=== PATIENT | female | born 1955 | race Caucasian/White ===

== ENCOUNTER 2017-04-05 01:01 | Inpatient (IN) | payer OTHER, MEDICARE ==
[~2017-04-05] VITALS: Ht 177.8 cm; Wt 76.1 kg
[2017-04-05 03:02] LABS: CONDITION Y; Hematocrit 38.4 % (36.0-46.0); Hemoglobin 12.9 g/dL (12.2-16.2); Mean Corpuscular Hemoglobin 29.3 pg (28.0-32.0); Mean Corpuscular Hgb Conc. 33.7 g/dL (32.0-36.0); Mean Corpuscular Volume 86.9 fL (80.0-100.0); Mean Platelet Volume 9.1 fL (7.4-10.4); Platelet Count (auto) 88 10^3/uL (140-450); Red Cell Distribution Width 17.5 % (11.6-16.0); SUSPECT SEE PRINTOUT; White Blood Cell 15.2 10^3/uL (4.4-10.8)
[2017-04-05 03:15] LABS: Albumin 2.6 g/dL (3.4-5.0); BUN/Creatinine Ratio 10.8; Calcium 7.5 mg/dL (8.5-10.1); Potassium 3.1 mmol/L (3.5-5.1)
[2017-04-05 03:18] LABS: INR 1.47 (0.9-1.15); Partial Thromboplastin Time 35.2 sec (22.64-33.71)
[2017-04-05 03:20] LABS: Bilirubin, Total 1.3 mg/dL (0.2-1.0); Total Protein 7.3 g/dL (6.4-8.2)
[2017-04-05 03:40] LABS: Prothrombin Time 16.1 sec (9.37-12.3)
[2017-04-05 03:47] LABS: Myelocytes % 0; Promyelocytes % 0; Reactive Lymphocytes 0
[2017-04-05] MEDS ORDERED: TEMAZEPAM 15 MG CAP PO ONE (04:00)
[2017-04-05 04:50] LABS: Metamyelocytes % 1; Platelet Estimate Decreased
[2017-04-05 04:51] LABS: RBC Morphology Normal
[2017-04-05] MEDS ORDERED: NITROGLYCERIN 0.4 MG SL TAB SL PRN (06:30)
[2017-04-05] MEDS ORDERED: ACETAMINOPHEN 325 MG TAB PO PRN (06:30)
[2017-04-05] MEDS ORDERED: cloNIDine HCL 0.1 MG TAB PO PRN (06:30)
[2017-04-05] MEDS ORDERED: SODIUM CHLORIDE 0.9% 1,000 ML IV ONE (06:30)
[2017-04-05] MEDS ORDERED: METOPROLOL TARTRATE 1MG/1ML-5ML VIAL IV ONE (06:30)
[2017-04-05] MEDS ORDERED: TEMAZEPAM 15 MG CAP PO PRN (06:30)
[2017-04-05] MEDS ORDERED: MORPHINE SULF INJ 2 MG/ML SYRINGE 1ML IV PRN (06:30)
[2017-04-05] MEDS: LEVOFLOXACIN 750MG 150 ML IV SCH (07:22)
[2017-04-05] MEDS: ONDANSETRON HCL 4 MG/2 ML VIAL IV PRN ×2 (07:59→18:43)
[2017-04-05] MEDS: MORPHINE SULF INJ 2 MG/ML SYRINGE 1ML IV PRN ×2 (07:59→12:27)
[2017-04-05] MEDS: SODIUM CHLORIDE 0.9% 1,000 ML IV SCH ×2 (08:03→20:13)
[2017-04-05 08:15] LABS: Lactic Acid w/Reflex 4.4 mmol/L (0.4-2.0)
[2017-04-05 08:31] LABS: REFLEX LACTIC ACID YES OR NO YES
[2017-04-05 08:56] VITALS: BP 136/77
[2017-04-05 09:13] VITALS: BP 136/77
[2017-04-05] MEDS ORDERED: LEVO25TA6 PO (09:29)
[2017-04-05] MEDS ORDERED: OXYC30TA77 PO (09:29)
[2017-04-05] MEDS ORDERED: ALPR1TAB2 PO (09:29)
[2017-04-05] MEDS ORDERED: ONDA8TAB6 PO (09:29)
[2017-04-05] MEDS ORDERED: PRO10T PO (09:29)
[2017-04-05] MEDS ORDERED: OXYC-650 PO (09:29)
[2017-04-05] MEDS ORDERED: CARI-277 PO (09:29)
[2017-04-05] MEDS ORDERED: [UNRECOGNIZED DRUG - CODE] EX (09:29)
[2017-04-05] MEDS ORDERED: VENL150C PO (09:29)
[2017-04-05] MEDS ORDERED: METO25TA5 PO (09:29)
[2017-04-05] MEDS: ENOXAPARIN SOD 40 MG/0.4 ML SYRINGE SC SCH (10:33)
[2017-04-05] MEDS: DILTIAZEM HCL 180MG ER CAP PO SCH (10:33)
[2017-04-05] MEDS: PANTOPRAZOLE SODIUM 40 MG/10 ML VIAL IV SCH (10:33)
[2017-04-05] MEDS: HYDROcodone-ACET 5/325MG TAB PO PRN (10:34)
[2017-04-05] MEDS: LORazepam 0.5 MG TAB PO PRN (13:24)
[2017-04-05] MEDS: oxyCODONE ER 10 MG TAB PO PRN (18:43)
[2017-04-05 20:00] VITALS: BP 112/65
[2017-04-05 21:30] VITALS: BP 112/65
[2017-04-05] MEDS ORDERED: DILT180C68 PO (23:39)
[2017-04-05] MEDS ORDERED: LETR2.5T PO (23:39)
[2017-04-05] MEDS ORDERED: PERCOT PO (23:39)
[2017-04-06] MEDS: LORazepam 0.5 MG TAB PO PRN ×4 (00:22→23:24)
[2017-04-06 05:00] VITALS: BP 114/63
[2017-04-06] MEDS: LEVOFLOXACIN 750MG 150 ML IV SCH (06:09)
[2017-04-06 06:32] LABS: Basophils # (auto) 0 uL; CONDITION Y; Eosinophils # (auto) 0 uL; Hematocrit 33.6 % (36.0-46.0); Hemoglobin 11.3 g/dL (12.2-16.2); Lymphocytes % (auto) 12.9 % (10.0-50.0); Mean Corpuscular Hemoglobin 29.3 pg (28.0-32.0); Mean Corpuscular Hgb Conc. 33.5 g/dL (32.0-36.0); Mean Corpuscular Volume 87.3 fL (80.0-100.0); Mean Platelet Volume 8.9 fL (7.4-10.4); Monocytes # (auto) 0.5 uL; Monocytes % (auto) 7.1 % (0.0-12.0); Neutrophils # (auto) 6.2 uL; Platelet Count (auto) 111 10^3/uL (140-450); Red Cell Distribution Width 17.3 % (11.6-16.0); White Blood Cell 7.7 10^3/uL (4.4-10.8)
[2017-04-06 07:01] LABS: Albumin 2.2 g/dL (3.4-5.0); BUN/Creatinine Ratio 18.8; Calcium 7.8 mg/dL (8.5-10.1)
[2017-04-06 07:03] LABS: Bilirubin, Total 0.8 mg/dL (0.2-1.0); Total Protein 6.5 g/dL (6.4-8.2)
[2017-04-06 09:00] VITALS: BP 131/69
[2017-04-06] MEDS: SODIUM CHLORIDE 0.9% 1,000 ML IV SCH ×2 (09:23→22:30)
[2017-04-06] MEDS: PANTOPRAZOLE SODIUM 40 MG/10 ML VIAL IV SCH (09:32)
[2017-04-06] MEDS: ENOXAPARIN SOD 40 MG/0.4 ML SYRINGE SC SCH (09:34)
[2017-04-06] MEDS: DILTIAZEM HCL 180MG ER CAP PO SCH (09:34)
[2017-04-06] MEDS: oxyCODONE ER 10 MG TAB PO PRN (12:02)
[2017-04-06 13:00] VITALS: BP 134/71
[2017-04-06 17:00] VITALS: BP 121/67
[2017-04-06 17:45] LABS: Body Fluid Polymorphonuclear 70 %
[2017-04-06 21:44] VITALS: BP 127/57
[2017-04-07] MEDS: HYDROcodone-ACET 5/325MG TAB PO PRN (02:53)
[2017-04-07 05:11] VITALS: BP 122/68
[2017-04-07] MEDS: LEVOFLOXACIN 750MG 150 ML IV SCH (06:13)
[2017-04-07] MEDS: SODIUM CHLORIDE 0.9% 1,000 ML IV SCH (06:24)
[2017-04-07] MEDS: LORazepam 0.5 MG TAB PO PRN (06:34)
[2017-04-07 06:52] LABS: Basophils # (auto) 0 uL; Basophils % (auto) 0.4 % (0.0-2.0); CONDITION Y; Eosinophils # (auto) 0 uL; Hematocrit 35.3 % (36.0-46.0); Hemoglobin 11.9 g/dL (12.2-16.2); Lymphocytes # (auto) 0.8 uL; Lymphocytes % (auto) 15.5 % (10.0-50.0); Mean Corpuscular Hemoglobin 29.3 pg (28.0-32.0); Mean Corpuscular Hgb Conc. 33.6 g/dL (32.0-36.0); Mean Corpuscular Volume 87.1 fL (80.0-100.0); Mean Platelet Volume 9.1 fL (7.4-10.4); Monocytes # (auto) 0.4 uL; Monocytes % (auto) 8.5 % (0.0-12.0); Neutrophils % (auto) 75.6 % (37.0-80.0); Platelet Count (auto) 117 10^3/uL (140-450); Red Cell Distribution Width 17.5 % (11.6-16.0); White Blood Cell 5.3 10^3/uL (4.4-10.8)
[2017-04-07 07:08] LABS: INR 1.4 (0.9-1.15)
[2017-04-07 07:13] LABS: Albumin 2.2 g/dL (3.4-5.0); BUN/Creatinine Ratio 10.8; Calcium 7.5 mg/dL (8.5-10.1); Potassium 3.2 mmol/L (3.5-5.1)
[2017-04-07 07:16] LABS: Bilirubin, Total 1.1 mg/dL (0.2-1.0); Total Protein 6.6 g/dL (6.4-8.2)
[2017-04-07 07:22] LABS: Prothrombin Time 15.3 sec (9.37-12.3)
[2017-04-07] MEDS: oxyCODONE ER 10 MG TAB PO PRN (09:03)
[2017-04-07 09:24] VITALS: BP 140/57
[2017-04-07 09:59] VITALS: BP 114/63
[2017-04-07 22:09] LABS: Albumin, Body Fluid 0.6 g/dL (.); Albumin, Body Fluid 1.1 g/dL (.)
[2017-04-09 15:08] LABS: Ceruloplasmin 20.6 mg/dL (19.0-39.0)
== END 2017-04-07 10:30 | disposition home or self-care (01) | DRG 193 ==
LOC: ER 01:01 → TELE 01:02 → TELE-E-ADS 08:09 → TELE-WESTW 13:00
PROVIDERS: ADMIT Nurse Practitioner; ATTEND Internal Medicine
PROC: 0W9G3ZZ Drainage of Peritoneal Cavity, Percutaneous Approach (ICD-10-PCS; principal; 2017-04-06)
PROC: 0W993ZZ Drainage of Right Pleural Cavity, Percutaneous Approach (ICD-10-PCS; 2017-04-06)
DX: J18.1 Lobar pneumonia, unspecified organism (principal); E43 Unspecified severe protein-calorie malnutrition; J90 Pleural effusion, not elsewhere classified; G89.4 Chronic pain syndrome; E87.6 Hypokalemia; I10 Essential (primary) hypertension; K52.9 Noninfective gastroenteritis and colitis, unspecified; K74.60 Unspecified cirrhosis of liver; G89.29 Other chronic pain; K52.3 Indeterminate colitis; Z85.3 Personal history of malignant neoplasm of breast; Z90.49 Acquired absence of other specified parts of digestive tract; Z68.24 Body mass index [BMI] 24.0-24.9, adult
CPT/HCPCS: 36415; 71010; 71250; 74176; 76604; 76700; 76942; 80053; 80074; 82140; 82390; 83540; 83550; 83605; 83880; 84484; 85007; 85025; 85027; 85610; 85730; 86038; 87040; 87045; 87205; 87493; 87899; 89051; 93005; 96361; 96374; 96375; C9113; J1956; J2405

== ENCOUNTER 2020-03-20 21:13 | Inpatient (IN) | payer OTHER, MEDICARE ==
[~2020-03-20] VITALS: Ht 165.1 cm; Wt 95.6 kg
[~2020-03-20 21:13] MED LIST: ALPR1TAB2 PO; CARI-277 PO; DILT180C68 PO; LETR2.5T PO; LEVO25TA6 PO; METO25TA5 PO; ONDA-143 PO; OXYC-650 PO; PERCOT PO; PROC10TA2 PO; VENL150C2 PO; [UNRECOGNIZED DRUG - CODE] EX
[2020-03-20 23:00] LABS: Basophils # (auto) 0 10 ^3/uL (0-0.2); Eosinophils # (auto) 0.1 10 ^3/uL (0-0.8); Neutrophils % (auto) 65.8 % (37.0-80.0)
[2020-03-20 23:09] LABS: INR 1.23 (0.9-1.15); Partial Thromboplastin Time 31.9 sec (23.64-32.05)
[2020-03-20 23:46] LABS: Basophils % (auto) 0.6 % (0.0-2.0); Hematocrit 40.4 % (36.0-46.0); Hemoglobin 13.7 g/dL (12.2-16.2); Lymphocytes # (auto) 0.7 10 ^3/uL (0.4-5.4); Lymphocytes % (auto) 21.4 % (10.0-50.0); Mean Corpuscular Hemoglobin 30.7 pg (28.0-32.0); Mean Corpuscular Hgb Conc. 33.9 g/dL (32.0-36.0); Mean Corpuscular Volume 90.6 fL (80.0-100.0); Monocytes # (auto) 0.3 10 ^3/uL (0-1.3); Monocytes % (auto) 10.2 % (0.0-12.0); Neutrophils # (auto) 2.3 10 ^3/uL (1.6-8.6); Nucleated Red Blood Cells % 0.2 %; Platelet Count (auto) 81 10^3/uL (140-450); Red Blood Cells 4.45 10^6/uL (4.0-5.20); Red Cell Distribution Width 15.3 % (11.8-14.3); White Blood Cell 3.4 10^3/uL (4.4-10.8)
[2020-03-21 00:46] LABS: Anion Gap 4 (5-15); Carbon Dioxide 28 mmol/L (21-32); Chloride 109 mmol/L (98-107); Glucose 80 mg/dL (74-106); Potassium 3.9 mmol/L (3.5-5.1); Sodium 141 mmol/L (136-145)
[2020-03-21 00:47] LABS: Alanine Aminotransferase 34 U/L (13-56); Albumin 3.1 g/dL (3.4-5.0); Alkaline Phosphatase 104 U/L (45-117); Aspartate Aminotransferase 39 U/L (15-37); Bilirubin, Total 1.8 mg/dL (0.2-1.0); Blood Urea Nitrogen 7 mg/dL (7-18); Calcium 8.1 mg/dL (8.5-10.1); GFR African American 96 mL/min; GFR Non-African American 79 mL/min; Magnesium 2.5 mg/dL (1.6-2.6); Total Protein 7.8 g/dL (6.4-8.2)
[2020-03-21 00:48] LABS: Amylase 74 U/L (25-115); Lipase 197 U/L (73-393)
[2020-03-21] MEDS ORDERED: MORPHINE SULF INJ 2 MG/ML SYRINGE 1ML IV ONE (04:00)
[2020-03-21] MEDS ORDERED: ONDANSETRON HCL 4 MG/2 ML VIAL IV ONE (04:00)
[2020-03-21] MEDS ORDERED: IOHEXOL 350 MG/ML 100ML IJ ONE (06:06)
[2020-03-21] MEDS ORDERED: MORPHINE SULF INJ 2 MG/ML SYRINGE 1ML IV PRN ×2 (10:15→10:30)
[2020-03-21] MEDS ORDERED: NITROGLYCERIN 0.4 MG SL TAB SL PRN ×2 (10:15→10:30)
[2020-03-21] MEDS ORDERED: ONDANSETRON HCL 4 MG/2 ML VIAL IV PRN (10:30)
[2020-03-21] MEDS ORDERED: VANCOMYCIN PER PHARMACY 0 MG IV SCH (10:30)
[2020-03-21] MEDS ORDERED: HYDROcodone-ACET 5/325MG TAB PO PRN (10:30)
[2020-03-21] MEDS ORDERED: ALUM & MAG HYDROX-SIMETH LIQ(MAALOX) 30 ML PO PRN (10:30)
[2020-03-21] MEDS ORDERED: IPRATROPIUM BROM 0.5 MG/2.5ML INH SOL NEB PRN (10:30)
[2020-03-21] MEDS ORDERED: DOCUSATE SOD 100 MG CAP PO PRN (10:30)
[2020-03-21] MEDS: MORPHINE SULF INJ 2 MG/ML SYRINGE 1ML IV PRN ×2 (11:00→22:28)
[2020-03-21 11:08] VITALS: BP 141/81
[2020-03-21] MEDS: VANCOMYCIN 1GM/250ML 250 ML IV SCH ×2 (11:35→22:10)
[2020-03-21 12:00] LABS: Cholesterol 134 mg/dL (< 200); HDL Cholesterol 49 mg/dL (40-59); LDL Cholesterol 85 mg/dL (< 100); Triglycerides 50 mg/dL (< 150)
[2020-03-21] MEDS: PIPERACILLIN-TAZOB 3.375GM 100 ML IV SCH ×2 (14:22→18:13)
[2020-03-21] MEDS: FUROSEMIDE 20 MG/2 ML VIAL IV SCH (18:00)
[2020-03-21] MEDS ORDERED: PROCHLORPERAZINE MALEATE 10 MG TAB PO PRN (18:00)
--- NOTE | 2020-03-21 18:00 | NUR ---
Telemetry admit from ER BARRY MEJIA admitted to Telemetry unit after SBAR received. Patient oriented to RERE HERNÁNDEZ,RN primary RN, unit, room, bed, and unit policies regarding patient care and visiting hours. Patient now on continuous telemetry monitoring, tele box # 42 and telemetry reading on arrival to unit is NSR @ 88BPM. Patient placed on bedside oxygen @ 3L N/C, weighed by bedscale and encouraged to call if they need something. Bed in lowest/locked position, bed rails up x2, call light within reach. All questions and concerns addressed, patient verbalized understanding.
[2020-03-21] MEDS ORDERED: GABA-339 PO (18:34)
[2020-03-21] MEDS ORDERED: ALBUAER3 IN (18:34)
[2020-03-21] MEDS ORDERED: ARIP2TAB PO (18:34)
[2020-03-21] MEDS ORDERED: MELA3TAB27 PO (18:36)
[2020-03-21] MEDS ORDERED: TRAZ100T3 PO (18:36)
[2020-03-21 18:50] VITALS: BP 147/64
--- NOTE | 2020-03-21 18:55 | NUR ---
TRAVEL ASSESSMENT ON ADMIT PRIMARY TIFFANY JERNIGAN AWARE OF PATIENTS SYMPTOMS. Addendum: 03/21/20 at 1857 by Christi Estrella RN Amended: Links added.
--- NOTE | 2020-03-21 18:57 | NUR ---
TEMP TEMP 100.4. COOLING MEASURES PLACED. NO MEDICATION IN EMAR FOR TEMP. WILL NOTIFY HOSPITALIST. AWAITING RETURN CALL
--- NOTE | 2020-03-21 19:04 | NUR ---
ASSESSED PT @ THIS TIME FOR PRN MED NEB TX. PT STATES HER BREATHING IS DOING FINE. NO DISTRESS NOTED. FOUND HER ON R/A W/ SPO2 OF 88%. I PLACED ON HER ON A NC @ 2L, SPO2 NOW 93%, HR 77 AND RR 16. BS ARE DIMINISHED T/O. PT IS AWARE TO CALL IF SHE FEELS SOB.
--- NOTE | 2020-03-21 19:13 | NUR ---
RETURN CALL DR MARC RETURNED CALL RE: PATIENT TEMP 100.4 AND 2 SYMPT[address] OF COVID[address] MARC; PATIENT WAS RECENTLY SWABBED 2X FOR COVID WITH NEGATIVE RESULTS BUT IF NEEDED PUT PATIENT ON ISO AND SWAB FOR COVID. NEW ORDERS RECEIVED/WILL CARRY OUT. ENDORSED CARE TO REESE DU
[2020-03-21] MEDS ORDERED: ACETAMINOPHEN 325 MG TAB PO PRN ×2 (19:30)
--- NOTE | 2020-03-21 19:45 | NUR ---
Opening Shift Note Assumed patient care from day shift RN. Patient sitting in bed, AOx4, with no s/s of SOB or distress. Patient bed locked in lowest position, call light within reach and HOB at 30 degrees. Will continue to monitor.
[2020-03-21 22:00] VITALS: BP 147/94
[2020-03-21] MEDS: VENLAFAXINE HCL 37.5MG TABLET PO SCH (22:09)
[2020-03-21] MEDS: CARISOPRODOL 350 MG TAB PO SCH (22:10)
[2020-03-21] MEDS: METOPROLOL TARTRATE 25 MG TAB PO SCH (22:10)
--- NOTE | 2020-03-21 22:28 | NUR ---
Complaints of Pain Patient complains of left lip and leg pain. Pain assessed and given medication for pain as prescribed. Will continue to monitor.
[2020-03-22] MEDS: PIPERACILLIN-TAZOB 3.375GM 100 ML IV SCH ×4 (01:45→23:33)
[2020-03-22 05:00] VITALS: BP 125/66
[2020-03-22] MEDS: FUROSEMIDE 20 MG/2 ML VIAL IV SCH ×2 (06:00→18:13)
[2020-03-22] MEDS: LEVOTHYROXINE SODIUM 25 MCG TAB PO SCH (06:01)
[2020-03-22] MEDS: CARISOPRODOL 350 MG TAB PO SCH ×3 (06:01→23:24)
[2020-03-22 06:54] LABS: Basophils # (auto) 0 10 ^3/uL (0-0.2); Basophils % (auto) 0.9 % (0.0-2.0); Eosinophils # (auto) 0.1 10 ^3/uL (0-0.8); Eosinophils % (auto) 2.3 % (0.0-7.0); Hematocrit 36.2 % (36.0-46.0); Hemoglobin 12.4 g/dL (12.2-16.2); Lymphocytes # (auto) 0.7 10 ^3/uL (0.4-5.4); Mean Corpuscular Hemoglobin 30.6 pg (28.0-32.0); Mean Corpuscular Hgb Conc. 34.2 g/dL (32.0-36.0); Mean Corpuscular Volume 89.6 fL (80.0-100.0); Monocytes # (auto) 0.5 10 ^3/uL (0-1.3); Monocytes % (auto) 10.2 % (0.0-12.0); Neutrophils # (auto) 3.5 10 ^3/uL (1.6-8.6); Neutrophils % (auto) 71.6 % (37.0-80.0); Nucleated Red Blood Cells % 0.3 %; Platelet Count (auto) 88 10^3/uL (140-450); Red Blood Cells 4.04 10^6/uL (4.0-5.20); Red Cell Distribution Width 14.8 % (11.8-14.3); White Blood Cell 4.9 10^3/uL (4.4-10.8)
[2020-03-22 07:11] LABS: Magnesium 2.3 mg/dL (1.6-2.6)
[2020-03-22 07:18] LABS: INR 1.33 (0.9-1.15); Partial Thromboplastin Time 39.3 sec (23.64-32.05)
[2020-03-22 07:27] LABS: Albumin 2.8 g/dL (3.4-5.0); BUN/Creatinine Ratio 11.2; Bilirubin, Total 2.7 mg/dL (0.2-1.0); Calcium 7.9 mg/dL (8.5-10.1); Phosphorus 3.8 mg/dL (2.5-4.90); Total Protein 6.8 g/dL (6.4-8.2)
--- NOTE | 2020-03-22 07:30 | NUR ---
Opening Shift Note Assumed care of patient, awake and alert. No S/S of distress/SOB or pain. Updated on POC and instructed to call for assistance PRN. Bed locked in lowest position, side rails up x2, call light within reach. Safety precautions in place. will continue to monitor for changes Q1hr and PRN.
[2020-03-22] MEDS: MORPHINE SULF INJ 2 MG/ML SYRINGE 1ML IV PRN ×3 (08:35→21:50)
--- NOTE | 2020-03-22 08:59 | NUR ---
COVID SWAB SENT TO LAB
[2020-03-22 09:00] VITALS: BP 93/55
[2020-03-22] MEDS: SPIRONOLACTONE 25 MG TAB PO SCH (09:26)
[2020-03-22] MEDS: METOPROLOL TARTRATE 25 MG TAB PO SCH ×2 (09:26→23:27)
[2020-03-22] MEDS: VENLAFAXINE HCL 37.5MG TABLET PO SCH ×2 (09:26→23:25)
[2020-03-22] MEDS: dilTIAZem 120MG ER CAP PO SCH (09:26)
[2020-03-22] MEDS: VANCOMYCIN 1GM/250ML 250 ML IV SCH (10:38)
[2020-03-22] MEDS ORDERED: ALBUMIN 25% 50 ML IV ONE (11:15)
[2020-03-22] MEDS ORDERED: SODIUM CHLORIDE 0.9% 1,000 ML IV ONE (11:15)
[2020-03-22 13:00] VITALS: BP 107/51
[2020-03-22] MEDS: ALBUMIN 25% 100 ML IV SCH ×2 (13:30→23:21)
[2020-03-22 17:00] VITALS: BP 109/55
--- NOTE | 2020-03-22 18:50 | NUR ---
PATIENT ROUNDS PATIENT SITTING UP EATING DINNER, NO S/S OF DISTRESS. WILL ENDORSE CARE TO METAL BONDING HELPER RN.
--- NOTE | 2020-03-22 19:18 | NUR ---
PT ASSESSED FOR PRN MED NEB TX. SPO2 80% ON RA. PT PLACED ON 2L NC WITH SPO2 AT 91%, HR 69. PT DENIES ANY RESPIRATORY DISTRESS. NO TX INDICATED. WILL CONTINUE TO MONITOR.
--- NOTE | 2020-03-22 19:20 | NUR ---
Opening Shift Note Assumed patient care from day shift RN. Patient sitting in bed, AOx4, with no s/s of SOB or distress at this time. Patient bed locked in lowest position, call light within reach and HOB at 30 degrees. Will continue to monitor.
--- NOTE | 2020-03-22 21:50 | NUR ---
Complains of generalized pain Medication for pain given as prescribed Will continue to monitor.
--- NOTE | 2020-03-23 01:00 | NUR ---
Patient very agitated Patient was screaming and standing by commode saying that she wanted to go home. Patient also said shes in a lot of generalized pain. Hospitalist was paged. Still waiting for a call. TRANSITION TEACHER at bedside until patient stays safely in bed. Will continue to frequently monitor.
[2020-03-23] MEDS: MORPHINE SULF INJ 2 MG/ML SYRINGE 1ML IV PRN ×4 (01:49→23:12)
--- NOTE | 2020-03-23 01:50 | NUR ---
Pain medication given for generalized pain Patient given medication as prescribed. Patient now resting more calmly in bed.
[2020-03-23 02:16] VITALS: BP 120/61
--- NOTE | 2020-03-23 03:00 | NUR ---
Patient Right wrist IV D/C due to infiltration. patient IV cath intact and patient tolerated well.
--- NOTE | 2020-03-23 03:54 | NUR ---
New IV Cath placed New IV cath placed on left hand 22 g . patient tolerated well.
[2020-03-23] MEDS: VANCOMYCIN 1GM/250ML 250 ML IV SCH ×3 (04:15→22:59)
[2020-03-23] MEDS: ALBUMIN 25% 100 ML IV SCH (04:18)
[2020-03-23] MEDS: PIPERACILLIN-TAZOB 3.375GM 100 ML IV SCH ×3 (04:55→15:23)
[2020-03-23] MEDS: FUROSEMIDE 20 MG/2 ML VIAL IV SCH ×2 (05:30→17:43)
[2020-03-23] MEDS: CARISOPRODOL 350 MG TAB PO SCH ×3 (05:30→22:58)
[2020-03-23 06:03] VITALS: BP 124/60
--- NOTE | 2020-03-23 06:55 | NUR ---
PRN MN TX NOT INDICATED AT THIS TIME. PT IN NO RESPIRATORY DISTRESS. PT ON RA. 95% O2 SATS.
[2020-03-23] MEDS: LEVOTHYROXINE SODIUM 25 MCG TAB PO SCH (07:10)
--- NOTE | 2020-03-23 07:38 | NUR ---
Opening Shift Note Assumed care of patient, awake and alert. No S/S of distress/SOB, patient reports lower back pain of 10/10 will medicate per MD orders. Updated on POC and instructed to call for assistance PRN. Bed locked in lowest position, side rails up x2, call light within reach. Safety precautions in place. will continue to monitor for changes Q1hr and PRN.
[2020-03-23 08:35] LABS: Basophils # (auto) 0 10 ^3/uL (0-0.2); Eosinophils # (auto) 0.1 10 ^3/uL (0-0.8); Lymphocytes # (auto) 0.6 10 ^3/uL (0.4-5.4); Monocytes # (auto) 0.4 10 ^3/uL (0-1.3); White Blood Cell 3.1 10^3/uL (4.4-10.8)
[2020-03-23 08:38] LABS: Basophils % (auto) 0.8 % (0.0-2.0); Eosinophils % (auto) 2.2 % (0.0-7.0); Hematocrit 33.1 % (36.0-46.0); Hemoglobin 11.4 g/dL (12.2-16.2); Lymphocytes % (auto) 19.1 % (10.0-50.0); Mean Corpuscular Hemoglobin 30.8 pg (28.0-32.0); Mean Corpuscular Hgb Conc. 34.5 g/dL (32.0-36.0); Mean Corpuscular Volume 89.2 fL (80.0-100.0); Monocytes % (auto) 12.7 % (0.0-12.0); Neutrophils % (auto) 65.2 % (37.0-80.0); Nucleated Red Blood Cells % 0.2 %; Platelet Count (auto) 62 10^3/uL (140-450); Red Cell Distribution Width 14.7 % (11.8-14.3)
[2020-03-23 08:58] LABS: Potassium 3.4 mmol/L (3.5-5.1)
[2020-03-23 09:00] VITALS: BP 100/56
[2020-03-23 09:04] LABS: INR 1.38 (0.9-1.15); Partial Thromboplastin Time 39.8 sec (23.64-32.05)
[2020-03-23 09:08] LABS: Calcium 8.3 mg/dL (8.5-10.1); Magnesium 2.3 mg/dL (1.6-2.6); Phosphorus 3.2 mg/dL (2.5-4.90); Total Protein 7.3 g/dL (6.4-8.2)
[2020-03-23] MEDS: dilTIAZem 120MG ER CAP PO SCH (10:00)
[2020-03-23] MEDS: METOPROLOL TARTRATE 25 MG TAB PO SCH ×2 (10:00→23:13)
[2020-03-23] MEDS: SPIRONOLACTONE 25 MG TAB PO SCH (10:41)
[2020-03-23] MEDS: VENLAFAXINE HCL 37.5MG TABLET PO SCH ×2 (10:41→22:58)
[2020-03-23 13:00] VITALS: BP 133/61
--- NOTE | 2020-03-23 13:11 | NUR ---
PATIENT ARRIVED IN [place]. PER BED FOR THORACENTESIS BASELINE VS HR 76, RR 15, SAO2 91%, SP 104/59 1316 O2 APPLIED @ 2L PER NC - SAO2 96% 1325 HR 70, RR 13, SDD699%, BP 101/53 1330 HR 68, RR 14, SAO2 96%, BP 98/52 1334 HR 74, RR 23, SAO2 95% BP 108/62 1441 PATIENT TOLERATED PROCEDURE WELL. 950ML SARA LIQ OBTAINED - TAKEN TO LAB FOR PATHOLOGY PER ORDERS. PATIENT RETURNED TO ROOM PER BED ON 2L O2 PER NC. REPORT CALLED TO TIFFANY.
[2020-03-23 17:00] VITALS: BP 90/41
--- NOTE | 2020-03-23 18:53 | NUR ---
PATIENT ROUNDS PATIENT SITTING UP EATING DINNER, NO S/S OF DISTRESS. WILL ENDORSE CARE TO PROJECT CONSTRUCTION ASSISTANT MANAGER RN.
[2020-03-23 22:00] VITALS: BP 118/60
--- NOTE | 2020-03-23 22:00 | NUR ---
Respiratory note: PT ASSESSED FOR PRN MED NEB TX. HR 82, RR 18, SPO2 95% RA. NO S/S OF ANY RESPIRATORY DISTRESS NOTED. ADVISED PT TO CALL IF TX IS NEEDED.
[2020-03-23] MEDS: rifAXIMin 550 MG TAB PO SCH (22:58)
[2020-03-23] MEDS: LACTULOSE 20Gm/30ML SOLN PO SCH (22:59)
[2020-03-24] MEDS: PIPERACILLIN-TAZOB 3.375GM 100 ML IV SCH ×4 (00:32→16:00)
[2020-03-24 05:00] VITALS: BP 127/78
[2020-03-24] MEDS: MORPHINE SULF INJ 2 MG/ML SYRINGE 1ML IV PRN ×2 (05:15→10:06)
--- NOTE | 2020-03-24 05:45 | NUR ---
Respiratory note: PT ASSESSED FOR PRN TX. HR 106, 18, POX 94% ON RA , BS ARE CLEAR. NO SOB OR DISTRESS NOTED.
[2020-03-24] MEDS: LACTULOSE 20Gm/30ML SOLN PO SCH ×2 (05:46→14:00)
[2020-03-24] MEDS: FUROSEMIDE 20 MG/2 ML VIAL IV SCH ×2 (05:46→18:00)
[2020-03-24] MEDS: CARISOPRODOL 350 MG TAB PO SCH ×2 (05:47→14:00)
[2020-03-24] MEDS ORDERED: LEVOTHYROXINE SODIUM 25 MCG TAB PO SCH (07:00)
[2020-03-24 07:17] LABS: Basophils # (auto) 0.1 10 ^3/uL (0-0.2); Basophils % (auto) 1.2 % (0.0-2.0); Eosinophils # (auto) 0.1 10 ^3/uL (0-0.8); Eosinophils % (auto) 2.6 % (0.0-7.0); Hematocrit 34.3 % (36.0-46.0); Hemoglobin 11.9 g/dL (12.2-16.2); Lymphocytes # (auto) 0.6 10 ^3/uL (0.4-5.4); Lymphocytes % (auto) 15.7 % (10.0-50.0); Mean Corpuscular Hemoglobin 30.8 pg (28.0-32.0); Mean Corpuscular Hgb Conc. 34.7 g/dL (32.0-36.0); Mean Corpuscular Volume 88.9 fL (80.0-100.0); Monocytes # (auto) 0.5 10 ^3/uL (0-1.3); Monocytes % (auto) 12.4 % (0.0-12.0); Neutrophils # (auto) 2.8 10 ^3/uL (1.6-8.6); Neutrophils % (auto) 68.1 % (37.0-80.0); Nucleated Red Blood Cells % 0.1 %; Platelet Count (auto) 71 10^3/uL (140-450); Red Blood Cells 3.86 10^6/uL (4.0-5.20); Red Cell Distribution Width 14.9 % (11.8-14.3); White Blood Cell 4.1 10^3/uL (4.4-10.8)
--- NOTE | 2020-03-24 07:34 | NUR ---
Opening Shift Note Assumed care of patient, resting with eyes closed. No S/S of distress/SOB or pain. Bed locked in lowest position, side rails up x2, call light within reach. Safety precautions in place and bed alarm is on. Will continue to monitor for changes Q1hr and PRN.
[2020-03-24 07:45] LABS: Albumin 3.9 g/dL (3.4-5.0); Calcium 8.6 mg/dL (8.5-10.1); Magnesium 2.4 mg/dL (1.6-2.6); Potassium 3.4 mmol/L (3.5-5.1)
[2020-03-24 07:49] LABS: BUN/Creatinine Ratio 11.6; Bilirubin, Total 2.4 mg/dL (0.2-1.0); Total Protein 7.7 g/dL (6.4-8.2)
[2020-03-24 09:29] VITALS: BP 114/62
[2020-03-24] MEDS ORDERED: SPIRONOLACTONE 25 MG TAB PO SCH (10:00)
[2020-03-24] MEDS: rifAXIMin 550 MG TAB PO SCH (10:07)
[2020-03-24] MEDS: dilTIAZem 120MG ER CAP PO SCH (10:07)
[2020-03-24] MEDS: METOPROLOL TARTRATE 25 MG TAB PO SCH (10:08)
[2020-03-24] MEDS: VENLAFAXINE HCL 37.5MG TABLET PO SCH (10:08)
[2020-03-24 11:08] VITALS: BP 114/62
[2020-03-24] MEDS: VANCOMYCIN 1GM/250ML 250 ML IV SCH (11:30)
[2020-03-24 12:24] VITALS: BP 127/68
--- NOTE | 2020-03-24 12:50 | NUR ---
Nutrition Assessment Notes please see attached link for complete assessment Est Energy needs ABW 75 [id number] kcals (20-23 kcal/kgBW), Est Protein needs: 45-60 gms/day (0.6-0.8 gm/kgBW r/t elev ammonia). Will continue to monitor and reassess prn. Addendum: 03/24/20 at [address] Amended: Links added.
[2020-03-24] MEDS ORDERED: LEVO50TA7 PO (14:06)
[2020-03-24] MEDS ORDERED: SPIR25TA88 PO (14:06)
[2020-03-24] MEDS ORDERED: LACT10SO3 PO (14:06)
--- NOTE | 2020-03-24 15:32 | NUR ---
ASSESSMENT LICENSED MARINE ENGINEER SPOKE WITH PT'S SPOUSE JAY [phone] TO OBTAIN COLLATERAL INFORMATION FOR INITIAL ASSESSMENT. PT IS A 65 YR OLD FEMALE ADMITTED FOR ACUTE RESPIRATORY FAILURE. SHE HAS A HX OF END STAGE LIVER DISEASE, CIRRHOSIS. SHE ALSO HAS DEPRESSION, PREVIOUS ETOH, OPIOID AND COCAINE ABUSE. PER SPOUSE PT IS NO LONGER USING ANY SUBSTANCES AFTER DETOXING AT [facility]. SHE CONTINUES TO TAKE DEPRESSION MEDS AND IS COPING WELL PER FAMILY. PT RESIDES WITH HER SPOUSE, SON AND GRAND DAUGHTER. DAUGHTER CORKY [phone] IS ALSO INVOLVED, FAMILY IS SUPPORTIVE. PT AMBULATES WITH A WALKER SOMETIMES, SHE IS INDEPENDENT WITH ADL'S, NO OTHER DME. PT'S PCP IS AT [facility], SPOUSE DOES NOT RECALL THE NAME. PT DOES NOT HAVE AN AHCD. PLAN IS FOR PT TO DC HOME WITH HOME HEALTH, TO CONTINUE TO MONITOR PT FOR DC NEEDS. Addendum: 03/24/20 at 1541 by DANIELA MCCLELLAND Amended: Links added.
--- NOTE | 2020-03-24 16:40 | NUR ---
D/C planning Per SS consult for home health safety evaluation. Clinical information was faxed to [facility], [place], [facility], and [place]. Per [place]elt Inspector with agency patient health plan is out of area and cannot assist with patient needs. Informed DR. Curry.
[2020-03-24 17:02] VITALS: BP 126/71
[2020-03-24 17:36] VITALS: BP 126/71
[2020-03-24] MEDS ORDERED: LACTULOSE 20Gm/30ML SOLN PO SCH (18:00)
--- NOTE | 2020-03-24 18:30 | NUR ---
Patient midline removed Patient was bleeding pressure was held for 5 minutes, patient continued to bleed, held manual pressure for 5 more minutes, when patient was no longer bleeding, pressure dressing was applied and patient was instructed to monitor for any bleeding and apply pressure if needed.
--- NOTE | 2020-03-24 18:42 | NUR ---
Discharge home Discharge instructions given as ordered. Encourage to follow up with PMD as instructed. All questions and concerns addressed. Patient verbalized understanding. Medication reconciliation form completed and copy given to patient. Telemetry unit returned to ICU. Patient taken to vehicle via wheelchair with all personal belongings, accompanied by staff. No distress noted at time of departure.
--- NOTE | 2020-03-24 18:42 | NUR ---
WAS ALSO PROVIDED WITH DISCHARGE INSTRUCTIONS. PATIENT AND VERBALIZED UNDERSTANDING.
== END 2020-03-24 18:35 | disposition home or self-care (01) | DRG 441 ==
LOC: ER 21:13 → TELE 21:14 → TELE-EAST 03-21 18:00
PROVIDERS: ADMIT Hospitalist; ATTEND Internal Medicine
PROC: 0W993ZZ Drainage of Right Pleural Cavity, Percutaneous Approach (ICD-10-PCS; principal; 2020-03-23)
DX: K72.90 Hepatic failure, unspecified without coma (principal); J18.9 Pneumonia, unspecified organism; J96.01 Acute respiratory failure with hypoxia; E44.0 Moderate protein-calorie malnutrition; J44.0 Chronic obstructive pulmonary disease with (acute) lower respiratory infection; J91.8 Pleural effusion in other conditions classified elsewhere; K76.6 Portal hypertension; J98.11 Atelectasis; K70.31 Alcoholic cirrhosis of liver with ascites; C50.919 Malignant neoplasm of unspecified site of unspecified female breast; D72.819 Decreased white blood cell count, unspecified; D69.6 Thrombocytopenia, unspecified; E03.9 Hypothyroidism, unspecified; E87.5 Hyperkalemia; F32.9 Major depressive disorder, single episode, unspecified; F41.9 Anxiety disorder, unspecified; G89.29 Other chronic pain; I10 Essential (primary) hypertension; M19.90 Unspecified osteoarthritis, unspecified site; T45.1X5A Adverse effect of antineoplastic and immunosuppressive drugs, initial encounter; Z20.828 Contact with and (suspected) exposure to other viral communicable diseases; M54.5 Low back pain; R16.1 Splenomegaly, not elsewhere classified; Y92.89 Other specified places as the place of occurrence of the external cause; Z85.3 Personal history of malignant neoplasm of breast; Z68.35 Body mass index [BMI] 35.0-35.9, adult
CPT/HCPCS: 10022; 36415; 71045; 71275; 76604; 76942; 80053; 80061; 80202; 82140; 82150; 83036; 83690; 83735; 83880; 83986; 84100; 84443; 84484; 85025; 85379; 85610; 85730; 87040; 87070; 87205; 89051; 93005; 93970; 96374; 96375; 96376; G0378; J2405; J2543; P9047

== ENCOUNTER 2020-08-24 23:21 | Emergency (ER) | payer OTHER, MEDICARE ==
[~2020-08-24] VITALS: Ht 177.8 cm; Wt 90.7 kg
[~2020-08-24 23:21] MED LIST changes: +ALBUAER3 IN; -ALPR1TAB2 PO; +ARIP2TAB PO; +LACT10SO3 PO; -LEVO25TA6 PO; +LEVO50TA7 PO; -OXYC-650 PO; -PERCOT PO; -PROC10TA2 PO; +SPIR25TA88 PO
[2020-08-25 02:00] LABS: Basophils # (auto) 0 10 ^3/uL (0-0.2); Eosinophils # (auto) 0 10 ^3/uL (0-0.8); Hemoglobin 13.2 g/dL (12.2-16.2); Lymphocytes # (auto) 0.6 10 ^3/uL (0.4-5.4); White Blood Cell 2.6 10^3/uL (4.4-10.8)
[2020-08-25 02:01] LABS: Basophils % (auto) 0.8 % (0.0-2.0); Eosinophils % (auto) 0.1 % (0.0-7.0); Hematocrit 38.7 % (36.0-46.0); Lymphocytes % (auto) 21.4 % (10.0-50.0); Mean Corpuscular Hemoglobin 28.5 pg (28.0-32.0); Mean Corpuscular Hgb Conc. 34.2 g/dL (32.0-36.0); Mean Corpuscular Volume 83.4 fL (80.0-100.0); Monocytes # (auto) 0.2 10 ^3/uL (0-1.3); Monocytes % (auto) 9.3 % (0.0-12.0); Neutrophils # (auto) 1.8 10 ^3/uL (1.6-8.6); Neutrophils % (auto) 68.4 % (37.0-80.0); Nucleated Red Blood Cells % 0.4 %; Platelet Count (auto) 51 10^3/uL (140-450); Red Blood Cells 4.64 10^6/uL (4.0-5.20); Red Cell Distribution Width 17.1 % (11.8-14.3)
[2020-08-25 02:19] LABS: Albumin 3.1 g/dL (3.4-5.0); BUN/Creatinine Ratio 6.7; Calcium 7.5 mg/dL (8.5-10.1); Potassium 3.9 mmol/L (3.5-5.1)
[2020-08-25 02:23] LABS: Total Protein 7.6 g/dL (6.4-8.2)
[2020-08-25 03:32] VITALS: BP 117/64
[2020-08-25] MEDS ORDERED: ACETAMINOPHEN 500 MG TAB PO ONE (03:45)
== END 2020-08-25 04:00 | disposition home or self-care (01) ==
LOC: ER 23:21
DX: U07.1 COVID-19 (principal); I10 Essential (primary) hypertension; Z90.49 Acquired absence of other specified parts of digestive tract
CPT/HCPCS: 36415; 71045; 80053; 85025; 87426

== ENCOUNTER 2024-03-15 13:54 | Emergency (ER) | payer BC, MEDICARE, OTHER ==
[~2024-03-15] VITALS: Ht 175.3 cm; Wt 86.7 kg
[~2024-03-15 13:54] MED LIST changes: +SPIR25TA PO; -SPIR25TA88 PO; -VENL150C2 PO; +VENL150C3 PO
[2024-03-15 14:59] VITALS: BP 101/45; PULSE 78; RESP 16; TEMP 99.1; O2SAT 97
[2024-03-15] MEDS: ACETAMINOPHEN 500 MG TAB PO ONE (16:34)
[2024-03-15] MEDS ORDERED: OFL50TS OT (16:36)
== END 2024-03-15 16:59 | disposition home or self-care (01) ==
LOC: ER 13:54
DX: H72.91 Unspecified perforation of tympanic membrane, right ear (principal); I10 Essential (primary) hypertension; E07.9 Disorder of thyroid, unspecified; Z90.49 Acquired absence of other specified parts of digestive tract; Z85.9 Personal history of malignant neoplasm, unspecified; W18.30XA Fall on same level, unspecified, initial encounter; Y93.89 Activity, other specified; Y92.89 Other specified places as the place of occurrence of the external cause; Y99.8 Other external cause status
CPT/HCPCS: 70450